=== PATIENT | female | born 1945 | race Hispanic/Latino ===

== ENCOUNTER 2023-05-23 14:32 | Emergency (ER) | payer MEDICARE ==
[~2023-05-23] VITALS: Ht 157.5 cm; Wt 81.6 kg
[~2023-05-23 14:32] MED LIST: CARV12.511 PO; CLON0.1T PO; DEXA6TAB PO; ERGO500093 PO; GLIM4TAB36 PO; HYDR12.54 PO; METF-446 PO; PANT40TA55 PO
[2023-05-23 15:17] VITALS: BP 143/93; PULSE 107; RESP 16
[2023-05-23 16:05] LABS: RAPID GROUP A STREP negative (NEGATIVE)
[2023-05-23 16:09] LABS: SARS-CoV-2, RNA, NAAT POSITIVE SARS CoV-2 (NEGATIVE)
[2023-05-23 16:14] LABS: INFLUENZA TYPE A Negative For Type A (NEGATIVE); INFLUENZA TYPE B Negative For Type B (NEGATIVE)
== END 2023-05-23 18:35 | disposition left against medical advice (07) ==
LOC: EDH 14:32
DX: U07.1 COVID-19 (principal); R10.9 Unspecified abdominal pain; Z53.21 Procedure and treatment not carried out due to patient leaving prior to being seen by health care provider
CPT/HCPCS: 71045; 87635; 87804; 87880; 93005; 99281